=== PATIENT | male | born 2000 | race Caucasian/White ===

== ENCOUNTER 2023-11-16 06:34 | Day surgery (SDC) | payer BC, SELFPAY ==
[2023-11-16 07:45] VITALS: BMI 29.9
[2023-11-16 07:55] VITALS: BP 142/83
[2023-11-16 07:58] VITALS: BMI 29.9
[2023-11-16] MEDS: TYLENOL 1000 MG PO (08:05)
[2023-11-16] MEDS: LYRICA 150 MG PO (08:06)
[2023-11-16] MEDS: CELEBREX 200 MG PO (08:07)
[2023-11-16] MEDS: NORMOSOL-R 1000 IV (08:12)
[2023-11-16 10:10] VITALS: BP 118/78
[2023-11-16 10:15] VITALS: BP 108/85
[2023-11-16 10:30] VITALS: BP 123/75
[2023-11-16 10:45] VITALS: BP 124/85
[2023-11-16 11:00] VITALS: BP 128/81
--- NOTE | 2023-11-16 12:18 | OR.RPT ---
Operative Report
Operative Report
DATE OF OPERATION: 11/16/2023
SURGEON: Tadeo Jacobson MD
PREOPERATIVE DIAGNOSIS: Pilonidal cyst with midline pits
POSTOPERATIVE DIAGNOSIS: Pilonidal cyst with midline pits
OPERATION: Exam under anesthesia, pilonidal pit excision x3, unroofing and curettage of pilonidal sinus tract, debridement of pilonidal cyst, bilateral pudendal nerve block
ASSISTANTS:
1. None
ANESTHESIA: MAC w/ local
ESTIMATED BLOOD LOSS: 15 mL
FINDINGS:
1. 3 midline pits within the jennifer cleft without associated subcutaneous tracts; these were excised using a 3 mm punch biopsy
2. Right-sided healed wound, about 1.5 cm in diameter, tracking to a superior midline pit; this tract was unroofed and curetted
3. Left-sided healed wound, about 1.5 cm in diameter, not associated with subcutaneous tract; this was debrided
SPECIMENS:
1. Midline pits
2. Right pilonidal cyst with tract
3. Left pilonidal cyst
DRAINS: None
COMPLICATIONS: None
INDICATIONS: The patient is a 23-year-old male who presented with a chronic pilonidal cyst, first noticed 4 years ago but developed symptoms 2 years ago. Symptoms primarily include a cycling of infection, abscess formation and then spontaneous
drainage. Therefore, the patient was recommended to have surgery.
The operation was discussed with the patient in detail, including the risks, benefits and alternatives. Risks described included, but not limited to, bleeding, infection, damage to nearby structures such as the anal sphincter, recurrence, and
anesthetic risks. Additionally, I explained that the full extent of the necessary surgery will not be established until a thorough exam under anesthesia. Therefore, I will to attempt to perform the least invasive procedure as possible, such as the
Gips procedure or unroofing and curettage. If the pilonidal disease is more extensive or not conducive to these approaches, I will plan to excise the pilonidal disease with or without primary closure. The patient understood and agreed to proceed.
The consent was signed and placed in the chart.
PROCEDURE IN DETAIL: The patient was taken to the operating room and placed on the operating table in prone position. Sequential compression devices were placed bilaterally. 2 gm of ancef were given. Sedation was commenced without complication.
Two seat belts were secured around the legs and upper back. The buttocks were taped apart. The superior cleft was shaved, prepped and draped in the usual fashion. A time-out was then performed verifying the correct patient, procedure,
operative site, positioning, and special equipment.
Local anesthesia used was a mixture of 60 mL of 0.25% Marcaine with epinephrine and 0.6 mL of dexamethasone. 30 mL was injected subcutaneously around the pilonidal disease at the beginning of the case. Next, the pilonidal cyst and midline pits were
probed using anal fistula and lacrimal probes to assess for underlying tracking. Hair was noted within the pits and removed. There were 2 chronic pilonidal wounds just superior to the buttocks, each about 2 cm from the midline and about 1.5 cm in
diameter. There was no erythema or purulent drainage expressed from these chronic healing wounds. There were several small pits along the midline tracking toward the anus. The most inferior midline pit was about 4 cm from the anus and was clearly
not tracking towards the anus or anywhere else. There were 2 more pits along the midline just superior to this first one that were probed and were not tracking anywhere. The next most superior pit was probed and was tracking towards the right
sided chronic pilonidal wound. Lastly, the left-sided chronic pilonidal wound was probed and no track to anywhere was identified.
There was clearly no infection in any of the pits or wounds, no erythema or purulent drainage identified. For the inferior midline pits, there was no connection between them and the other pits or wounds. Therefore, I proceeded with a pit excision
of each using the 3 mm punch biopsy. A trephine was created around the pit. The skin of the pit was grasped and elevated with DeBakey forceps and the base was divided with electrocautery. I repeated this for the other 2 pits. The excised midline
pits were passed off for pathology. For the sinus tract identified from the right pilonidal wound to the midline, I proceeded with an unroofing and curettage. I placed a fistula probe through the tract and opened up the tract along the trajectory
of the probe using electrocautery. I excised and debrided the right pilonidal chronic wound and passed this off for specimen. I debrided the sinus tract with a curette and passed the granulation tissue off with the same specimen. I saucerized the
lateral skin margin of the tract to prevent premature tract closure. I controlled hemostasis with electrocautery. Lastly, I excised and debrided the left pilonidal wound and passed this off for specimen. Again, hemostasis was achieved with
electrocautery.
I copiously irrigated the wounds and hemostasis was assured with electrocautery. Surgicel was placed in the surgical wounds prophylactically. At the end of the case, the remaining 30 mL of local were injected around the surgical site.
At this point, the procedure was complete. All needle, sponge and instrument counts were correct. The patient tolerated the procedure well and was transferred to the recovery room in stable condition with gauze dressing in place secured with silk
tape.
DICTATED BY: Tadeo Jacobson MD
== END 2023-11-16 11:15 | disposition home or self-care (01) ==
LOC: SDS 06:34
PROVIDERS: ATTENDING PHYSICIAN Surgery
DX: L05.91 Pilonidal cyst without abscess (principal)
CPT/HCPCS: 11770; 88304